=== PATIENT | male | born 1950 | race Caucasian/White ===

== ENCOUNTER → 2016-11-19 | Outpatient (CLI) | payer MEDICARE ==
[~2016-11-19] MED LIST: APIX5TAB PO; ASPI-496 PO; ASPI-621 PO; ASPI-650 PO; ATOR10TA PO; ATOR40TA PO; ATOR40TA78 PO; CALC-148 PO; CANA100T PO; CANA300T PO; CEPH-368 PO; CYCL-259 PO; FENO160T PO; GLIP-142 PO; HYDR-3144 PO; HYDR-3307 PO; LANS15CA5 PO; LISI5TAB7 PO; METF10002 PO; METO25TA91 PO; MULT1TAB60 PO; NAPR220C2 PO; NAPR220T29 PO; OMNIPAQUE 350 MG/ML, 150 ML BOTTLE ONE; PRAS10TA4 PO; SITA25TA PO
== END | disposition home or self-care (01) ==
LOC: CFH 08:55
PROVIDERS: ATTEND Internal Medicine Cardiovascular Disease
DX: I47.1 Supraventricular tachycardia (principal); I48.91 Unspecified atrial fibrillation
CPT/HCPCS: 71020; 75572; Q9967

== ENCOUNTER 2016-11-21 06:32 | Inpatient (IN) | payer MEDICARE ==
[2016-11-19 10:32] VITALS: BP 141/84
[2016-11-19 11:44] LABS: ASPARTATE AMINO TRANSFERASE 22 U/L (15-37); BLOOD UREA NITROGEN 24 mg/dL (7-18)
[~2016-11-21] VITALS: Ht 177.8 cm; Wt 90.8 kg
[~2016-11-21 06:32] MED LIST changes: -OMNIPAQUE 350 MG/ML, 150 ML BOTTLE ONE
[2016-11-21] MEDS ORDERED: SODIUM CHLORIDE 0.9% 1,000 ML IV SCH (06:52)
[2016-11-21] MEDS ORDERED: SODIUM CHLORIDE 0.9% 1,000 ML IV ONE (07:00)
[2016-11-21] MEDS ORDERED: NAPR-874 PO (07:16)
[2016-11-21] MEDS ORDERED: OMEP-110 PO (07:16)
[2016-11-21] MEDS ORDERED: FENTANYL PF 250 MCG/5ML ONE (07:38)
[2016-11-21] MEDS ORDERED: MIDAZOLAM 1 MG/ML, 5ML ONE (07:38)
[2016-11-21] MEDS ORDERED: BUPIVACAINE 0.25% ONE (07:49)
[2016-11-21] MEDS ORDERED: HEPARIN 1,000 UNITS/ML, 10ML ONE ×2 (07:49→10:23)
[2016-11-21] MEDS ORDERED: PROPOFOL 10 MG/ML, 20ML ONE (07:55)
[2016-11-21] MEDS ORDERED: ONDANSETRON 2MG/ML, 2ML ONE (07:55)
[2016-11-21] MEDS ORDERED: SUCCINYLCHOLINE 20 MG/ML, 10ML ONE (07:55)
[2016-11-21] MEDS ORDERED: DEXAMETHASONE 4 MG/ML, 1ML ONE (07:55)
[2016-11-21] MEDS ORDERED: ISOPROTERENOL 0.2MG/ML, 5ML ONE (10:39)
[2016-11-21] MEDS ORDERED: PROTAMINE SULFATE 10 MG/ML, 5ML ONE (11:00)
[2016-11-21] MEDS ORDERED: ACETAMINOPHEN 325 MG TABLET PO PRN ×2 (11:30→12:00)
[2016-11-21] MEDS ORDERED: OXYcodone 5 MG/5 ML ORAL.SOL UDC PO PRN (12:00)
[2016-11-21] MEDS ORDERED: MIDAZOLAM 1 MG/ML, 2ML IV PRN (12:00)
[2016-11-21] MEDS: NAPROXEN MC SCH ×2 (12:00→20:00)
[2016-11-21] MEDS ORDERED: ONDANSETRON 2MG/ML, 2ML IVPush PRN (12:00)
[2016-11-21] MEDS ORDERED: EPHEDRINE 50 MG/ML, 1ML IVPush PRN (12:00)
[2016-11-21] MEDS ORDERED: FENTANYL PF 100 MCG/2ML IV PRN (12:00)
[2016-11-21] MEDS ORDERED: HYDROmorphone 1 MG/ML, 1ML IV PRN (12:00)
[2016-11-21] MEDS ORDERED: PROMETHAZINE 25 MG/ML, 1ML IV PRN (12:00)
[2016-11-21] MEDS: APIXABAN 5 MG TABLET PO SCH (12:41)
[2016-11-21 17:56] VITALS: BP 104/67
[2016-11-21 20:03] VITALS: BP 103/65
[2016-11-21 20:10] VITALS: BP 101/61
[2016-11-21] MEDS ORDERED: ZOLPIDEM 5MG TABLET PO PRN (21:00)
[2016-11-21] MEDS: LISINOPRIL 5 MG TABLET PO SCH (23:30)
[2016-11-21] MEDS: ATORVASTATIN 40 MG TABLET PO SCH (23:31)
[2016-11-21] MEDS: SOTALOL 120MG TABLET PO SCH (23:31)
[2016-11-21] MEDS: metFORMIN 500 MG TABLET PO SCH (23:31)
[2016-11-22 03:00] VITALS: BP 95/59
[2016-11-22 07:38] VITALS: BP 102/66
[2016-11-22] MEDS: FENOFIBRATE 145 MG TABLET PO SCH (09:40)
[2016-11-22] MEDS: SOTALOL 120MG TABLET PO SCH ×2 (09:41→18:41)
[2016-11-22] MEDS: APIXABAN 5 MG TABLET PO SCH ×2 (09:41→20:24)
[2016-11-22] MEDS: NAPROXEN 500 MG TABLET PO SCH (09:41)
[2016-11-22] MEDS: metFORMIN 500 MG TABLET PO SCH ×2 (09:41→18:41)
[2016-11-22] MEDS: MULTIVITAMIN 1 TABLET PO SCH (09:41)
[2016-11-22] MEDS: OMEPRAZOLE 20 MG CAPSULE.DR PO SCH (09:41)
[2016-11-22] MEDS: LISINOPRIL 5 MG TABLET PO SCH ×2 (09:46→20:25)
[2016-11-22 13:41] VITALS: BP 108/72
[2016-11-22 20:07] VITALS: BP 95/60
[2016-11-22] MEDS: GLIPizide ER 5 MG TABLET PO SCH (20:25)
[2016-11-22] MEDS: ATORVASTATIN 40 MG TABLET PO SCH (20:25)
[2016-11-23 02:30] VITALS: BP 105/69
[2016-11-23] MEDS: SOTALOL 120MG TABLET PO SCH ×2 (06:17→17:29)
[2016-11-23 07:04] VITALS: BP 111/72
[2016-11-23] MEDS: NAPROXEN 500 MG TABLET PO SCH (07:56)
[2016-11-23] MEDS: MULTIVITAMIN 1 TABLET PO SCH (07:57)
[2016-11-23] MEDS: APIXABAN 5 MG TABLET PO SCH ×2 (07:57→21:06)
[2016-11-23] MEDS: OMEPRAZOLE 20 MG CAPSULE.DR PO SCH (07:57)
[2016-11-23] MEDS: metFORMIN 500 MG TABLET PO SCH ×2 (07:57→17:28)
[2016-11-23] MEDS: FENOFIBRATE 145 MG TABLET PO SCH (07:57)
[2016-11-23] MEDS: GLIPizide ER 5 MG TABLET PO SCH (07:57)
[2016-11-23] MEDS: LISINOPRIL 5 MG TABLET PO SCH ×2 (07:58→21:00)
[2016-11-23 14:25] VITALS: BP 110/65
[2016-11-23 21:02] VITALS: BP 112/65
[2016-11-23] MEDS: ATORVASTATIN 40 MG TABLET PO SCH (21:06)
[2016-11-24 02:00] VITALS: BP 119/75
[2016-11-24 05:27] LABS: BLOOD UREA NITROGEN 19 mg/dL (7-18)
[2016-11-24] MEDS: SOTALOL 120MG TABLET PO SCH (06:07)
[2016-11-24 08:14] VITALS: BP 143/81
[2016-11-24] MEDS: LISINOPRIL 5 MG TABLET PO SCH (08:16)
[2016-11-24] MEDS: NAPROXEN 500 MG TABLET PO SCH (08:16)
[2016-11-24] MEDS: OMEPRAZOLE 20 MG CAPSULE.DR PO SCH (08:16)
[2016-11-24] MEDS: APIXABAN 5 MG TABLET PO SCH (08:16)
[2016-11-24] MEDS: FENOFIBRATE 145 MG TABLET PO SCH (08:16)
[2016-11-24] MEDS: GLIPizide ER 5 MG TABLET PO SCH (08:16)
[2016-11-24] MEDS: MULTIVITAMIN 1 TABLET PO SCH (08:16)
[2016-11-24] MEDS: metFORMIN 500 MG TABLET PO SCH (08:16)
[2016-11-24] MEDS ORDERED: NAPROXEN 500 MG TABLET PO PRN (08:30)
[2016-11-24] MEDS ORDERED: SOTA120T14 PO (08:33)
== END 2016-11-24 13:35 | disposition home or self-care (01) | DRG 228 ==
LOC: CACL 06:32 → ORIP 11:17 → 5SO 14:14
PROVIDERS: ADMIT Internal Medicine Cardiovascular Disease; ATTEND Internal Medicine Cardiovascular Disease
PROC: 02K84ZZ Map Conduction Mechanism, Percutaneous Endoscopic Approach (ICD-10-PCS; 2016-11-21)
PROC: 4A02X4A Measurement of Cardiac Electrical Activity, Guidance, External Approach (ICD-10-PCS; 2016-11-21)
PROC: 02584ZZ Destruction of Conduction Mechanism, Percutaneous Endoscopic Approach (ICD-10-PCS; principal; 2016-11-21 08:00)
DX: I48.0 Paroxysmal atrial fibrillation (principal); I50.33 Acute on chronic diastolic (congestive) heart failure; D68.69 Other thrombophilia; I48.4 Atypical atrial flutter; D64.9 Anemia, unspecified; I27.2 Other secondary pulmonary hypertension; E11.9 Type 2 diabetes mellitus without complications; E78.5 Hyperlipidemia, unspecified; Z87.891 Personal history of nicotine dependence; I47.1 Supraventricular tachycardia; I95.9 Hypotension, unspecified; R00.1 Bradycardia, unspecified; R51 Headache
CPT/HCPCS: 36415; 80048; 80053; 85025; 85347; 85610; 85730; 93005; 93306; 93312; 93321; 93325; 93613; 93623; 93656; 93662; C1731; C1732; C1766; C1893; C1894; J1100; J1644; J2250; J2405; J2704; J2720; J3010; J3490; C1730; C1759; J0330

== ENCOUNTER 2017-04-17 10:46 | Day surgery (SDC) | payer MEDICARE ==
[~2017-04-17 10:46] MED LIST changes: -HYDR-3144 PO; +HYDR-3245 PO; +NAPR-816 PO; -NAPR220T29 PO; +NAPR250T6 PO; +OMEP-110 PO; +SOTA120T14 PO
== END 2017-04-17 11:45 ==
LOC: CACL 10:46
PROVIDERS: ATTEND Internal Medicine Cardiovascular Disease
DX: I48.92 Unspecified atrial flutter (principal)
CPT/HCPCS: 92960

== ENCOUNTER 2017-04-23 10:37 | Day surgery (SDC) | payer MEDICARE ==
[~2017-04-23] VITALS: Ht 177.8 cm; Wt 88.6 kg
[2017-04-23] MEDS ORDERED: SODIUM CHLORIDE 0.9% 1,000 ML IV ONE (11:00)
[2017-04-23] MEDS ORDERED: PLEASE ENTER HEIGHT AND WEIGHT MC SCH (11:30)
[2017-04-23] MEDS ORDERED: PROPOFOL 10 MG/ML, 20ML ONE (12:23)
== END 2017-04-23 14:02 ==
LOC: CACL 10:37
PROVIDERS: ATTEND Internal Medicine Cardiovascular Disease
DX: I48.92 Unspecified atrial flutter (principal); I25.10 Atherosclerotic heart disease of native coronary artery without angina pectoris; I10 Essential (primary) hypertension; E78.4 Other hyperlipidemia; I34.0 Nonrheumatic mitral (valve) insufficiency; E11.9 Type 2 diabetes mellitus without complications; Z95.5 Presence of coronary angioplasty implant and graft
CPT/HCPCS: 92960; 93312; 93321; 93325; J2704

== ENCOUNTER → 2017-06-03 | Outpatient (CLI) | payer MEDICARE ==
[~2017-06-03] MED LIST changes: +AMLO2.5T PO; +OMNIPAQUE 350 MG/ML, 150 ML BOTTLE ONE; +SOTA120T26 PO
== END | disposition home or self-care (01) ==
LOC: CFH 12:39
PROVIDERS: ATTEND Internal Medicine Cardiovascular Disease
DX: I47.1 Supraventricular tachycardia (principal); I48.91 Unspecified atrial fibrillation
CPT/HCPCS: 71046; 75572; 82565; Q9967

== ENCOUNTER 2017-06-04 06:24 | Observation (INO) | payer MEDICARE ==
[2017-06-03 14:20] VITALS: BP 145/105
[2017-06-03 14:22] LABS: BASOPHILS # (AUTO) 0.02 x10^3/uL (0-0.1); BASOPHILS % (AUTO) 0 % (0-1); EOSINOPHILS # (AUTO) 0.09 x10^3/uL (0-0.4); EOSINOPHILS % (AUTO) 1 % (1-7); LYMPHOCYTES # (AUTO) 1.61 x10^3/uL (1-3.4); LYMPHOCYTES % (AUTO) 22 % (22-44); MD NO; MEAN CORPUSCULAR HEMOGLOBIN 31.1 pg (27.5-34.5); MEAN CORPUSCULAR HGB CONC 33.8 g/dL (33.2-36.2); MEAN CORPUSCULAR VOLUME 92.1 fL (81-97); MEAN PLATELET VOLUME 8.7 fL (7.4-10.4); MONOCYTES # (AUTO) 0.68 x10^3/uL (0.2-0.8); MONOCYTES % (AUTO) 9 % (2-9); NEUTROPHILS % (AUTO) 67 % (42-75); PLATELET COUNT 213 x10^3/uL (130-400); RED BLOOD COUNT 4.99 x10^6/uL (4.38-5.82); RED CELL DISTRIBUTION WIDTH 13.3 % (9.4-14.8)
[2017-06-03 14:35] LABS: ANION GAP 9 mmol/L (5-15); CALCIUM 8.8 mg/dL (8.5-10.1); CHLORIDE 106 mmol/L (98-107); CREATININE 1.08 mg/dL (0.7-1.3)
[2017-06-03 14:51] LABS: INTERNATIONAL NORMALIZED RATIO 1.16 (0.93-1.1)
[~2017-06-04] VITALS: Ht 177.8 cm; Wt 94.2 kg
[~2017-06-04 06:24] MED LIST changes: -AMLO2.5T PO; -OMNIPAQUE 350 MG/ML, 150 ML BOTTLE ONE
[2017-06-04] MEDS ORDERED: SODIUM CHLORIDE 0.9% 1,000 ML IV SCH ×2 (06:37→07:00)
[2017-06-04] MEDS ORDERED: AMLO2.5T PO (07:03)
[2017-06-04] MEDS ORDERED: MIDAZOLAM 1 MG/ML, 2ML ONE (07:29)
[2017-06-04] MEDS ORDERED: FENTANYL PF 250 MCG/5ML ONE (07:29)
[2017-06-04] MEDS ORDERED: ISOPROTERENOL 0.2MG/ML, 5ML ONE (07:51)
[2017-06-04] MEDS ORDERED: PROTAMINE SULFATE 10 MG/ML, 5ML ONE (07:52)
[2017-06-04] MEDS ORDERED: LIDOCAINE 2%, 20ML ONE (07:52)
[2017-06-04] MEDS ORDERED: HEPARIN 1,000 UNITS/ML, 10ML ONE ×2 (07:52→11:07)
[2017-06-04] MEDS ORDERED: PROPOFOL 10 MG/ML, 20ML ONE (08:15)
[2017-06-04] MEDS ORDERED: SUCCINYLCHOLINE 20 MG/ML, 10ML ONE (08:15)
[2017-06-04] MEDS ORDERED: DEXAMETHASONE 4 MG/ML, 1ML ONE (08:15)
[2017-06-04] MEDS ORDERED: ONDANSETRON 2MG/ML, 2ML ONE (08:15)
[2017-06-04] MEDS ORDERED: ACETAMINOPHEN 325 MG TABLET PO PRN ×2 (12:00→12:30)
[2017-06-04] MEDS ORDERED: ZOLPIDEM 5MG TABLET PO PRN (12:00)
[2017-06-04] MEDS ORDERED: OXYcodone 5 MG/5 ML ORAL.SOL UDC PO PRN (12:30)
[2017-06-04] MEDS: APIXABAN 5 MG TABLET PO SCH ×2 (12:30→20:08)
[2017-06-04] MEDS ORDERED: PROMETHAZINE 25 MG/ML, 1ML IV PRN (12:30)
[2017-06-04] MEDS ORDERED: DIAZEPAM 5 MG/ML, 2ML IVPush PRN (12:30)
[2017-06-04] MEDS ORDERED: LABETALOL 5MG/ML, 20ML IV PRN (12:30)
[2017-06-04] MEDS ORDERED: FENTANYL PF 100 MCG/2ML IV PRN (12:30)
[2017-06-04] MEDS ORDERED: LORazepam 2 MG/ML, 1ML IVPush PRN (12:30)
[2017-06-04] MEDS ORDERED: EPHEDRINE 50 MG/ML, 1ML IVPush PRN (12:30)
[2017-06-04] MEDS ORDERED: HYDROmorphone 1 MG/ML, 1ML IV PRN (12:30)
[2017-06-04] MEDS ORDERED: MIDAZOLAM 1 MG/ML, 2ML IV PRN (12:30)
[2017-06-04] MEDS ORDERED: ONDANSETRON 2MG/ML, 2ML IVPush PRN (12:30)
[2017-06-04 18:40] VITALS: BP 110/66
[2017-06-04] MEDS: SOTALOL 120MG TABLET PO SCH (20:07)
[2017-06-04 20:08] VITALS: BP 114/72
[2017-06-04] MEDS: metFORMIN 500 MG TABLET PO SCH (20:08)
[2017-06-04] MEDS: LISINOPRIL 5 MG TABLET PO SCH (20:08)
[2017-06-04] MEDS ORDERED: ATORVASTATIN 40 MG TABLET PO SCH (21:00)
[2017-06-05 01:07] VITALS: BP 103/64
[2017-06-05 06:56] VITALS: BP 107/67
[2017-06-05] MEDS: APIXABAN 5 MG TABLET PO SCH (08:07)
[2017-06-05] MEDS: metFORMIN 500 MG TABLET PO SCH (08:08)
[2017-06-05] MEDS: SOTALOL 120MG TABLET PO SCH (08:08)
[2017-06-05] MEDS: LISINOPRIL 5 MG TABLET PO SCH (08:08)
[2017-06-05] MEDS ORDERED: NAPROXEN 500 MG TABLET PO SCH (09:00)
[2017-06-05] MEDS ORDERED: GLIPizide ER 5 MG TABLET PO SCH (09:00)
[2017-06-05] MEDS ORDERED: OMEPRAZOLE 20 MG CAPSULE.DR PO SCH (09:00)
[2017-06-05] MEDS ORDERED: FENOFIBRATE 145 MG TABLET PO SCH (09:00)
[2017-06-05] MEDS ORDERED: AMLODIPINE 2.5 MG TABLET PO SCH (09:00)
[2017-06-05] MEDS ORDERED: TEMPLATE NON-FORMULARY MED. (Canagliflozin (Invokana) 300 MG) HOMEMEDPO SCH (09:00)
== END 2017-06-05 11:25 | disposition home or self-care (01) ==
LOC: CACL 06:24 → ORIP 11:42 → 5SO 13:20 → DCLOUNGE 06-05 11:20
PROVIDERS: ADMIT Internal Medicine Cardiovascular Disease; ATTEND Internal Medicine Cardiovascular Disease
DX: I48.4 Atypical atrial flutter (principal); I48.91 Unspecified atrial fibrillation; I10 Essential (primary) hypertension; Z98.61 Coronary angioplasty status
CPT/HCPCS: 36415; 80048; 85025; 85347; 85610; 85730; 93306; 93312; 93321; 93325; 93462; 93613; 93621; 93653; 93655; 93662; C1730; C1731; C1759; C1766; C1893; C1894; C2630; G0378; J0330; J1100; J1644; J2250; J2405; J2704; J2720; J3010; J3490; 93656

== ENCOUNTER → 2017-07-03 | Outpatient (CLI) | payer MEDICARE ==
[~2017-07-03] MED LIST changes: +AMLO2.5T PO; +EMPA10TA PO
[2017-07-03 11:09] LABS: BASOPHILS # (AUTO) 0.02 x10^3/uL (0-0.1); BASOPHILS % (AUTO) 0 % (0-1); EOSINOPHILS # (AUTO) 0.16 x10^3/uL (0-0.4); EOSINOPHILS % (AUTO) 2 % (1-7); LYMPHOCYTES # (AUTO) 1.98 x10^3/uL (1-3.4); LYMPHOCYTES % (AUTO) 30 % (22-44); MD NO; MEAN CORPUSCULAR HEMOGLOBIN 30.8 pg (27.5-34.5); MEAN CORPUSCULAR HGB CONC 33.8 g/dL (33.2-36.2); MEAN CORPUSCULAR VOLUME 91.3 fL (81-97); MEAN PLATELET VOLUME 8.9 fL (7.4-10.4); MONOCYTES # (AUTO) 0.72 x10^3/uL (0.2-0.8); MONOCYTES % (AUTO) 11 % (2-9); NEUTROPHILS # (AUTO) 3.68 x10^3/uL (1.8-6.8); NEUTROPHILS % (AUTO) 56 % (42-75); PLATELET COUNT 192 x10^3/uL (130-400); RED BLOOD COUNT 5.06 x10^6/uL (4.38-5.82); RED CELL DISTRIBUTION WIDTH 13.5 % (9.4-14.8)
[2017-07-03 11:21] LABS: ANION GAP 8 mmol/L (5-15); CALCIUM 8.9 mg/dL (8.5-10.1); CHLORIDE 109 mmol/L (98-107)
== END | disposition home or self-care (01) ==
LOC: STAR 10:03
PROVIDERS: ATTEND Internal Medicine Cardiovascular Disease
DX: I10 Essential (primary) hypertension (principal); I48.91 Unspecified atrial fibrillation; Z98.61 Coronary angioplasty status
CPT/HCPCS: 36415; 80048; 85025

== ENCOUNTER 2017-07-08 08:32 | Day surgery (SDC) | payer MEDICAID, MEDICARE ==
[2017-07-03 10:59] VITALS: BP 140/84
[~2017-07-08] VITALS: Ht 177.8 cm; Wt 90.9 kg
[~2017-07-08 08:32] MED LIST changes: -EMPA10TA PO
[2017-07-08] MEDS ORDERED: SODIUM CHLORIDE 0.9% 1,000 ML IV SCH (08:37)
[2017-07-08] MEDS ORDERED: EMPA10TA PO (09:03)
[2017-07-08] MEDS ORDERED: LIDOCAINE 2%, 20ML ONE (09:29)
[2017-07-08] MEDS ORDERED: MIDAZOLAM 1 MG/ML, 2ML ONE (09:29)
[2017-07-08] MEDS ORDERED: FENTANYL PF 100 MCG/2ML ONE (09:29)
== END 2017-07-08 14:08 ==
LOC: CACL 08:32
PROVIDERS: ATTEND Internal Medicine Cardiovascular Disease
DX: I25.10 Atherosclerotic heart disease of native coronary artery without angina pectoris (principal); I48.91 Unspecified atrial fibrillation; Z98.61 Coronary angioplasty status; I10 Essential (primary) hypertension
CPT/HCPCS: 93458; 99156; C1760; C1894; J2250; J3010; J3490; Q9967

== ENCOUNTER 2017-09-01 04:21 | Inpatient (IN) | payer MEDICARE ==
[2017-08-31 13:46] LABS: BASOPHILS # (AUTO) 0.03 x10^3/uL (0-0.1); BASOPHILS % (AUTO) 0 % (0-1); EOSINOPHILS % (AUTO) 3 % (1-7); LYMPHOCYTES # (AUTO) 1.84 x10^3/uL (1-3.4); LYMPHOCYTES % (AUTO) 24 % (22-44); MD NO; MEAN CORPUSCULAR VOLUME 91.1 fL (81-97); MEAN PLATELET VOLUME 8.4 fL (7.4-10.4); MONOCYTES # (AUTO) 0.77 x10^3/uL (0.2-0.8); MONOCYTES % (AUTO) 10 % (2-9); NEUTROPHILS # (AUTO) 4.95 x10^3/uL (1.8-6.8); NEUTROPHILS % (AUTO) 64 % (42-75); PLATELET COUNT 224 x10^3/uL (130-400); RED BLOOD COUNT 5.15 x10^6/uL (4.38-5.82)
[2017-08-31 13:48] LABS: MICROSCOPIC NOT IND
[2017-08-31 13:52] LABS: INTERNATIONAL NORMALIZED RATIO 1.03 (0.93-1.1); PROTHROMBIN TIME 10.6 Seconds (9.6-11.5)
[2017-08-31 13:55] LABS: ALANINE AMINOTRANSFERASE 28 U/L (12-78); ALBUMIN 3.9 g/dL (3.4-5.0); ANION GAP 8 mmol/L (5-15); CALCIUM 8.8 mg/dL (8.5-10.1); CHLORIDE 104 mmol/L (98-107); CREATININE 1.18 mg/dL (0.7-1.3)
[2017-08-31 13:57] LABS: ALKALINE PHOSPHATASE 59 U/L (45-117); BILIRUBIN,TOTAL 0.6 mg/dL (0.2-1.0); TOTAL PROTEIN 7.4 g/dL (6.4-8.2)
[2017-08-31 14:04] LABS: HEMOGLOBIN A1C 8.5 % (4.2-6.3)
[2017-09-01] VITALS (7 sets, daily range): BP systolic 121–137; BP diastolic 76–87
[~2017-09-01] VITALS: Ht 177.8 cm; Wt 90.6 kg
[~2017-09-01 04:21] MED LIST changes: +EMPA10TA PO
[2017-09-01] MEDS ORDERED: ALBUMIN HUMAN 5% 500 ML IV PRN (04:30)
[2017-09-01] MEDS ORDERED: INSULIN LISPRO 100 UNITS/ML, PEN SQ-INSULIN SCH ×2 (05:00→11:00)
[2017-09-01] MEDS ORDERED: CHLORHEXIDINE 15 ML BOTTLE MM SCH (05:00)
[2017-09-01] MEDS ORDERED: DO NOT GIVE MC SCH (05:00)
[2017-09-01] MEDS ORDERED: SUFentanil 50 MCG/ML, 5ML ONE (06:48)
[2017-09-01] MEDS ORDERED: MIDAZOLAM 10MG/2 ML ONE (06:48)
[2017-09-01] MEDS ORDERED: VANCOMYCIN 1,400 MG in SODIUM CHLORIDE 0.9% 250 ML IV PRN (07:30)
[2017-09-01] MEDS ORDERED: POTASSIUM CHLORIDE 80 MEQ, SODIUM BICARBONATE 8.4% 10 MEQ, MAGNESIUM SULFATE 0.5 GM, LI... IV PRN (07:30)
[2017-09-01] MEDS ORDERED: PHENYLEPHRINE 10 MG in SODIUM CHLORIDE 0.9% 249 ML IV PRN ×2 (07:30→09:10)
[2017-09-01] MEDS ORDERED: DEXMEDETOMIDINE 200 MCG in SODIUM CHLORIDE 0.9% 48 ML IV SCH (07:30)
[2017-09-01] MEDS ORDERED: REGULAR INSULIN 62.5 UNITS in SODIUM CHLORIDE 0.9% 249.375 ML IV PRN ×2 (07:30→09:10)
[2017-09-01] MEDS ORDERED: MANNITOL PMX 20% 500 ML IVPB PRN (07:30)
[2017-09-01] MEDS ORDERED: EPINEPHRINE 2 MG in SODIUM CHLORIDE 0.9% 248 ML IV SCH (07:30)
[2017-09-01] MEDS ORDERED: EPINEPHRINE 1 MG/ML, 1ML ONE (08:31)
[2017-09-01] MEDS ORDERED: PHENYLEPHRINE 10 MG/ML ONE (08:31)
[2017-09-01] MEDS ORDERED: PROPOFOL 10 MG/ML, 20ML ONE (08:31)
[2017-09-01] MEDS ORDERED: ROCURONIUM 10MG/ML,5ML ONE ×2 (08:31)
[2017-09-01] MEDS ORDERED: AMINOCAPROIC ACID 250 MG/ML, 20ML ONE ×2 (08:31)
[2017-09-01] MEDS ORDERED: PROTAMINE SULFATE 10 MG/ML, 25ML ONE ×2 (08:48)
[2017-09-01] MEDS ORDERED: MUPIROCIN OINT 2%, 22GM TP SCH (09:00)
[2017-09-01] MEDS ORDERED: VASOPRESSIN 50 UNIT in SODIUM CHLORIDE 0.9% 250 ML IV PRN (09:10)
[2017-09-01] MEDS ORDERED: SODIUM CHLORIDE 0.9% 1,000 ML IV PRN (09:10)
[2017-09-01] MEDS ORDERED: NITROGLYCERIN/D5W PMX 250 ML IV PRN (09:10)
[2017-09-01] MEDS ORDERED: DEXMEDETOMIDINE 200 MCG in SODIUM CHLORIDE 0.9% 48 ML IV PRN (09:10)
[2017-09-01] MEDS ORDERED: DOBUTAMINE 250 MG in SODIUM CHLORIDE 0.9% 230 ML IV PRN (09:10)
[2017-09-01] MEDS ORDERED: DEXTROSE 4 GM TAB.CHEW PO PRN (09:30)
[2017-09-01] MEDS ORDERED: ONDANSETRON 2MG/ML, 2ML IVPush PRN (09:30)
[2017-09-01] MEDS ORDERED: morphine SULFATE 10 MG/ML, 1ML IVPush PRN (09:30)
[2017-09-01] MEDS ORDERED: ACETAMINOPHEN 650 MG SUPP PR PRN (09:30)
[2017-09-01] MEDS ORDERED: EPINEPHRINE 2 MG in SODIUM CHLORIDE 0.9% 248 ML IV PRN (09:30)
[2017-09-01] MEDS ORDERED: GLUCAGON 1 MG IM PRN (09:30)
[2017-09-01] MEDS ORDERED: PLEASE ENTER HEIGHT AND WEIGHT MC SCH (09:30)
[2017-09-01] MEDS ORDERED: PROCHLORPERAZINE 5 MG/ML, 2ML IVPush PRN (09:30)
[2017-09-01] MEDS ORDERED: INSULIN REGULAR 100 UNITS/ML, 3ML VIAL IVPush PRN (09:30)
[2017-09-01] MEDS ORDERED: SODIUM BICARB 8.4%, 50ML SYRINGE IV PRN (09:30)
[2017-09-01] MEDS ORDERED: MIDAZOLAM 1 MG/ML, 5ML IVPush PRN (09:30)
[2017-09-01] MEDS ORDERED: DEXTROSE 50%, 50ML SYRINGE IVPush PRN (09:30)
[2017-09-01] MEDS ORDERED: BISACODYL 5 MG EC TABLET PO PRN (09:30)
[2017-09-01] MEDS ORDERED: BISACODYL 10 MG SUPP PR PRN (09:30)
[2017-09-01] MEDS ORDERED: ACETAMINOPHEN 325 MG TABLET PO PRN (09:30)
[2017-09-01] MEDS ORDERED: AMIODARONE 50 MG/ML, 3ML ONE (09:38)
[2017-09-01] MEDS: KSCALE TO 4.5 IV SCH ×3 (10:30→22:30)
[2017-09-01] MEDS ORDERED: SODIUM BICARBONATE 1 MEQ/ML, 50ML VIAL ONE (10:34)
[2017-09-01] MEDS ORDERED: SODIUM BICARB 8.4%, 50ML SYRINGE ONE (10:34)
[2017-09-01] MEDS ORDERED: ALBUMIN HUMAN 25% 50 ML ONE (10:35)
[2017-09-01] MEDS ORDERED: LIDOCAINE 2% 100MG/5ML SYRINGE ONE (10:35)
[2017-09-01] MEDS ORDERED: HEPARIN 1,000 UNITS/ML, 30ML ONE (10:35)
[2017-09-01] MEDS ORDERED: methylPREDNISolone SOD SUCC 125 MG/2 ML ONE (10:35)
[2017-09-01 11:04] LABS: GLUCOSE BY BLOOD GAS ANALYZER 152 mg/dL (70-110); POTASSIUM BY BLOOD GAS ANALYZR 4.3 mmol/L (3.6-5.5)
[2017-09-01 11:14] LABS: INTERNATIONAL NORMALIZED RATIO 1.22 (0.93-1.1); PROTHROMBIN TIME 12.5 Seconds (9.6-11.5)
[2017-09-01] MEDS: LACTATED RINGERS 1,000 ML IV PRN ×4 (11:14→18:58)
[2017-09-01] MEDS: MAGNESIUM SULFATE 1 GM in SODIUM CHLORIDE 0.9% 50 ML IVPB SCH (11:25)
[2017-09-01] MEDS: SODIUM CHLORIDE FLUSH 10ML SYR IVF SCH ×3 (11:26→20:02)
[2017-09-01] MEDS: FENTANYL PF 100 MCG/2ML IVPush PRN ×2 (12:48→13:46)
[2017-09-01] MEDS ORDERED: LACTATED RINGERS 1,000 ML IVBOLUS ONE (14:30)
[2017-09-01] MEDS ORDERED: INSULIN LISPRO 100 UNITS/ML, PEN SQ-INSULIN PRN (14:30)
[2017-09-01] MEDS ORDERED: ONDANSETRON ODT 4 MG PO PRN (16:30)
[2017-09-01] MEDS: HYDROcodone/APAP 10/325 MG TABLET PO PRN ×2 (18:20→23:03)
[2017-09-01] MEDS ORDERED: CEFUROXIME 1.5 GM in SODIUM CHLORIDE 0.9% 100 ML IVPB SCH (19:00)
[2017-09-01] MEDS: DOCUSATE 100 MG CAPSULE PO SCH (20:01)
[2017-09-01] MEDS: MUPIROCIN OINT 2%, 22GM NAS SCH (20:27)
[2017-09-01] MEDS: VANCOMYCIN 1,300 MG in SODIUM CHLORIDE 0.9% 250 ML IVPB SCH (20:27)
[2017-09-01] MEDS: OXYcodone IR 5MG TABLET PO PRN (20:34)
[2017-09-02] MEDS: INSULIN LISPRO 100 UNITS/ML, PEN SQ-INSULIN PRN ×2 (01:12→08:32)
[2017-09-02] MEDS: HYDROcodone/APAP 10/325 MG TABLET PO PRN ×4 (04:11→21:03)
[2017-09-02 04:29] VITALS: BP 111/66
[2017-09-02] MEDS: KSCALE TO 4.5 IV SCH (04:30)
[2017-09-02 05:28] LABS: BASOPHILS % (AUTO) 0 % (0-1); EOSINOPHILS % (AUTO) 0 % (1-7); LYMPHOCYTES # (AUTO) 0.85 x10^3/uL (1-3.4); LYMPHOCYTES % (AUTO) 7 % (22-44); MD NO; MEAN CORPUSCULAR HEMOGLOBIN 30.6 pg (27.5-34.5); MEAN CORPUSCULAR HGB CONC 33.4 g/dL (33.2-36.2); MEAN CORPUSCULAR VOLUME 91.7 fL (81-97); MEAN PLATELET VOLUME 8.6 fL (7.4-10.4); MONOCYTES # (AUTO) 1.23 x10^3/uL (0.2-0.8); MONOCYTES % (AUTO) 10 % (2-9); NEUTROPHILS # (AUTO) 10.24 x10^3/uL (1.8-6.8); NEUTROPHILS % (AUTO) 83 % (42-75); PLATELET COUNT 128 x10^3/uL (130-400); RED BLOOD COUNT 3.69 x10^6/uL (4.38-5.82)
[2017-09-02 05:35] LABS: ALBUMIN 2.6 g/dL (3.4-5.0); ANION GAP 10 mmol/L (5-15); CALCIUM 7.2 mg/dL (8.5-10.1); CHLORIDE 111 mmol/L (98-107)
[2017-09-02 05:38] LABS: CREATININE 0.77 mg/dL (0.7-1.3)
[2017-09-02 06:53] LABS: INTERNATIONAL NORMALIZED RATIO 1.19 (0.93-1.1); PROTHROMBIN TIME 12.2 Seconds (9.6-11.5)
[2017-09-02] MEDS ORDERED: CEFUROXIME 1.5 GM in SODIUM CHLORIDE 0.9% 100 ML IVPB PRN (07:30)
[2017-09-02] MEDS: WARFARIN BIOPROSTHETIC VALVE PROTOCOL 2-3 XX SCH (07:58)
[2017-09-02] MEDS ORDERED: CEFUROXIME 1.5 GM in SODIUM CHLORIDE 0.9% 50 ML IVPB SCH (08:00)
[2017-09-02] MEDS: ASPIRIN 81 MG TABLET EC PO SCH (08:14)
[2017-09-02] MEDS: VANCOMYCIN 1,300 MG in SODIUM CHLORIDE 0.9% 250 ML IVPB SCH (08:14)
[2017-09-02] MEDS: MUPIROCIN OINT 2%, 22GM NAS SCH ×2 (08:14→20:59)
[2017-09-02] MEDS: DOCUSATE 100 MG CAPSULE PO SCH ×2 (08:14→20:58)
[2017-09-02] MEDS: SODIUM CHLORIDE FLUSH 10ML SYR IVF SCH ×4 (08:15→20:58)
[2017-09-02] MEDS: CHLORHEXIDINE 15 ML BOTTLE MM SCH ×2 (08:17→20:58)
[2017-09-02] MEDS: MAGNESIUM SULFATE 1 GM in SODIUM CHLORIDE 0.9% 50 ML IVPB SCH (11:11)
[2017-09-02] MEDS: INSULIN LISPRO 100 UNITS/ML, PEN SQ-INSULIN SCH ×3 (12:00→21:02)
[2017-09-02] MEDS ORDERED: WARFARIN 5 MG TABLET PO-COUM ONE (18:00)
[2017-09-02] MEDS: OXYcodone IR 5MG TABLET PO PRN (18:13)
[2017-09-03] MEDS: INSULIN LISPRO 100 UNITS/ML, PEN SQ-INSULIN SCH ×6 (00:29→21:06)
[2017-09-03] MEDS: HYDROcodone/APAP 5/325 TABLET PO PRN ×4 (04:16→21:12)
[2017-09-03 05:00] VITALS: BP 152/84
[2017-09-03 05:06] LABS: MEAN CORPUSCULAR HEMOGLOBIN 31.3 pg (27.5-34.5); MEAN PLATELET VOLUME 8.6 fL (7.4-10.4); PLATELET COUNT 122 x10^3/uL (130-400); RED BLOOD COUNT 3.49 x10^6/uL (4.38-5.82)
[2017-09-03 05:18] LABS: ANION GAP 6 mmol/L (5-15); CALCIUM 7.4 mg/dL (8.5-10.1); CHLORIDE 105 mmol/L (98-107); CREATININE 0.96 mg/dL (0.7-1.3)
[2017-09-03 05:20] LABS: INTERNATIONAL NORMALIZED RATIO 1.11 (0.93-1.1); PROTHROMBIN TIME 11.4 Seconds (9.6-11.5)
[2017-09-03 05:50] LABS: BASOPHILS # (AUTO) 0.03 x10^3/uL (0-0.1); BASOPHILS % (AUTO) 0 % (0-1); EOSINOPHILS # (AUTO) 0.02 x10^3/uL (0-0.4); EOSINOPHILS % (AUTO) 0 % (1-7); LYMPHOCYTES # (AUTO) 1.65 x10^3/uL (1-3.4); LYMPHOCYTES % (AUTO) 13 % (22-44); MONOCYTES # (AUTO) 1.67 x10^3/uL (0.2-0.8); MONOCYTES % (AUTO) 13 % (2-9); NEUTROPHILS # (AUTO) 9.85 x10^3/uL (1.8-6.8); NEUTROPHILS % (AUTO) 75 % (42-75)
[2017-09-03 06:00] LABS: MD SCAN
[2017-09-03] MEDS ORDERED: MAGNESIUM HYDROXIDE 8%, 30ML UDC PO PRN (08:00)
[2017-09-03] MEDS: SODIUM CHLORIDE FLUSH 10ML SYR IVF SCH ×3 (08:10→21:08)
[2017-09-03] MEDS: CHLORHEXIDINE 15 ML BOTTLE MM SCH ×2 (08:58→21:07)
[2017-09-03] MEDS: MUPIROCIN OINT 2%, 22GM NAS SCH ×2 (08:59→21:07)
[2017-09-03] MEDS: SOTALOL 80MG TABLET PO SCH ×2 (08:59→21:07)
[2017-09-03] MEDS: LISINOPRIL 5 MG TABLET PO SCH ×2 (09:00→21:07)
[2017-09-03] MEDS ORDERED: metFORMIN 500 MG TABLET PO SCH (09:00)
[2017-09-03] MEDS: ASPIRIN 81 MG TABLET EC PO SCH (09:00)
[2017-09-03] MEDS: WARFARIN BIOPROSTHETIC VALVE PROTOCOL 2-3 XX SCH (09:00)
[2017-09-03] MEDS: DOCUSATE 100 MG CAPSULE PO SCH ×2 (09:00→21:07)
[2017-09-03] MEDS: OMEPRAZOLE 20 MG CAPSULE.DR PO SCH (09:00)
[2017-09-03] MEDS: MAGNESIUM SULFATE 1 GM in SODIUM CHLORIDE 0.9% 50 ML IVPB SCH (10:57)
[2017-09-03] MEDS: EMPAGLIFLOZIN PO SCH (11:49)
[2017-09-03] MEDS: TEMPLATE NON-FORMULARY MED. (Glipizide** (Glipizide Xl**) 10 MG) PO SCH (11:49)
[2017-09-03] MEDS ORDERED: WARFARIN 5 MG TABLET PO-COUM SCH (18:00)
[2017-09-03 18:18] VITALS: BP 132/84
[2017-09-03] MEDS: ATORVASTATIN 40 MG TABLET PO SCH (21:07)
[2017-09-04 01:30] VITALS: BP 113/76
[2017-09-04] MEDS: SODIUM CHLORIDE FLUSH 10ML SYR IVF SCH ×5 (03:37→21:20)
[2017-09-04 05:44] LABS: BASOPHILS # (AUTO) 0.01 x10^3/uL (0-0.1); BASOPHILS % (AUTO) 0 % (0-1); EOSINOPHILS # (AUTO) 0.06 x10^3/uL (0-0.4); EOSINOPHILS % (AUTO) 1 % (1-7); LYMPHOCYTES # (AUTO) 1.63 x10^3/uL (1-3.4); LYMPHOCYTES % (AUTO) 16 % (22-44); MD NO; MEAN CORPUSCULAR HEMOGLOBIN 30.6 pg (27.5-34.5); MEAN CORPUSCULAR HGB CONC 33.3 g/dL (33.2-36.2); MEAN CORPUSCULAR VOLUME 91.9 fL (81-97); MEAN PLATELET VOLUME 8.5 fL (7.4-10.4); MONOCYTES % (AUTO) 10 % (2-9); NEUTROPHILS # (AUTO) 7.66 x10^3/uL (1.8-6.8); NEUTROPHILS % (AUTO) 74 % (42-75); PLATELET COUNT 121 x10^3/uL (130-400); RED BLOOD COUNT 3.46 x10^6/uL (4.38-5.82); RED CELL DISTRIBUTION WIDTH 13.9 % (9.4-14.8)
[2017-09-04 05:55] LABS: ANION GAP 9 mmol/L (5-15); CALCIUM 7.7 mg/dL (8.5-10.1); CHLORIDE 106 mmol/L (98-107); CREATININE 0.71 mg/dL (0.7-1.3)
[2017-09-04 07:33] VITALS: BP 128/82
[2017-09-04] MEDS: OMEPRAZOLE 20 MG CAPSULE.DR PO SCH (07:58)
[2017-09-04] MEDS: SOTALOL 80MG TABLET PO SCH ×2 (07:58→21:20)
[2017-09-04] MEDS: ASPIRIN 81 MG TABLET EC PO SCH (07:59)
[2017-09-04] MEDS: TEMPLATE NON-FORMULARY MED. (Glipizide** (Glipizide Xl**) 10 MG) PO SCH (07:59)
[2017-09-04] MEDS: WARFARIN BIOPROSTHETIC VALVE PROTOCOL 2-3 XX SCH (07:59)
[2017-09-04] MEDS: EMPAGLIFLOZIN PO SCH (07:59)
[2017-09-04] MEDS: LISINOPRIL 5 MG TABLET PO SCH ×2 (07:59→21:20)
[2017-09-04] MEDS: DOCUSATE 100 MG CAPSULE PO SCH ×2 (07:59→21:20)
[2017-09-04] MEDS: MUPIROCIN OINT 2%, 22GM NAS SCH ×2 (08:00→21:20)
[2017-09-04] MEDS: INSULIN LISPRO 100 UNITS/ML, PEN SQ-INSULIN SCH ×4 (08:00→21:30)
[2017-09-04] MEDS: FUROSEMIDE 20 MG/2 ML IV SCH (08:02)
[2017-09-04] MEDS: POTASSIUM CHLORIDE 10 MEQ TABLET.ER PO SCH (08:02)
[2017-09-04 08:13] LABS: INTERNATIONAL NORMALIZED RATIO 1.1 (0.93-1.1); PROTHROMBIN TIME 11.3 Seconds (9.6-11.5)
[2017-09-04 14:00] VITALS: BP 109/75
[2017-09-04] MEDS: HYDROcodone/APAP 10/325 MG TABLET PO PRN (17:52)
[2017-09-04] MEDS ORDERED: WARFARIN 5 MG TABLET PO-COUM SCH (18:00)
[2017-09-04] MEDS ORDERED: LINA5TAB PO (20:40)
[2017-09-04] MEDS ORDERED: EMPA25TA PO (20:40)
[2017-09-04] MEDS: ATORVASTATIN 40 MG TABLET PO SCH (21:20)
[2017-09-04 21:21] VITALS: BP 113/74
[2017-09-05 01:25] VITALS: BP 127/78
[2017-09-05 05:34] LABS: INTERNATIONAL NORMALIZED RATIO 1.19 (0.93-1.1); PROTHROMBIN TIME 12.2 Seconds (9.6-11.5)
[2017-09-05 05:37] LABS: ANION GAP 9 mmol/L (5-15); CALCIUM 8.1 mg/dL (8.5-10.1); CHLORIDE 103 mmol/L (98-107)
[2017-09-05 05:39] LABS: CREATININE 0.85 mg/dL (0.7-1.3)
[2017-09-05 05:52] LABS: BASOPHILS # (AUTO) 0.03 x10^3/uL (0-0.1); BASOPHILS % (AUTO) 0 % (0-1); EOSINOPHILS # (AUTO) 0.14 x10^3/uL (0-0.4); EOSINOPHILS % (AUTO) 2 % (1-7); LYMPHOCYTES # (AUTO) 1.68 x10^3/uL (1-3.4); LYMPHOCYTES % (AUTO) 19 % (22-44); MD NO; MEAN CORPUSCULAR HEMOGLOBIN 30.8 pg (27.5-34.5); MEAN CORPUSCULAR HGB CONC 33.8 g/dL (33.2-36.2); MEAN CORPUSCULAR VOLUME 91.3 fL (81-97); MEAN PLATELET VOLUME 8.6 fL (7.4-10.4); MONOCYTES # (AUTO) 0.89 x10^3/uL (0.2-0.8); MONOCYTES % (AUTO) 10 % (2-9); NEUTROPHILS # (AUTO) 6.08 x10^3/uL (1.8-6.8); NEUTROPHILS % (AUTO) 69 % (42-75); PLATELET COUNT 150 x10^3/uL (130-400); RED BLOOD COUNT 3.62 x10^6/uL (4.38-5.82); RED CELL DISTRIBUTION WIDTH 13.5 % (9.4-14.8)
[2017-09-05 07:27] VITALS: BP 145/84
[2017-09-05] MEDS: SODIUM CHLORIDE FLUSH 10ML SYR IVF SCH ×4 (08:11→21:00)
[2017-09-05] MEDS: GLIPIZIDE 10 MG HOMEMEDPO SCH ×2 (08:28→20:30)
[2017-09-05] MEDS: EMPAGLIFLOZIN 25 MG HOMEMEDPO SCH (08:28)
[2017-09-05] MEDS: INSULIN LISPRO 100 UNITS/ML, PEN SQ-INSULIN SCH ×4 (08:35→20:32)
[2017-09-05] MEDS: ASPIRIN 81 MG TABLET EC PO SCH (08:36)
[2017-09-05] MEDS: POTASSIUM CHLORIDE 10 MEQ TABLET.ER PO SCH (08:36)
[2017-09-05] MEDS: DOCUSATE 100 MG CAPSULE PO SCH ×2 (08:36→20:29)
[2017-09-05] MEDS: LISINOPRIL 10 MG TABLET PO SCH ×2 (08:37→20:29)
[2017-09-05] MEDS: FUROSEMIDE 20 MG/2 ML IV SCH (08:37)
[2017-09-05] MEDS: OMEPRAZOLE 20 MG CAPSULE.DR PO SCH (08:39)
[2017-09-05] MEDS: WARFARIN BIOPROSTHETIC VALVE PROTOCOL 2-3 XX SCH (08:58)
[2017-09-05] MEDS: MUPIROCIN OINT 2%, 22GM NAS SCH ×2 (08:58→20:29)
[2017-09-05 12:46] VITALS: BP 126/86
[2017-09-05] MEDS ORDERED: WARFARIN 7.5 MG TABLET PO-COUM SCH (18:00)
[2017-09-05 20:23] VITALS: BP 127/83
[2017-09-05] MEDS: ATORVASTATIN 40 MG TABLET PO SCH (20:29)
[2017-09-06 01:37] VITALS: BP 125/84
[2017-09-06 05:10] LABS: BASOPHILS # (AUTO) 0.01 x10^3/uL (0-0.1); BASOPHILS % (AUTO) 0 % (0-1); EOSINOPHILS # (AUTO) 0.12 x10^3/uL (0-0.4); EOSINOPHILS % (AUTO) 1 % (1-7); LYMPHOCYTES # (AUTO) 1.75 x10^3/uL (1-3.4); LYMPHOCYTES % (AUTO) 20 % (22-44); MD NO; MEAN CORPUSCULAR HEMOGLOBIN 30.5 pg (27.5-34.5); MEAN CORPUSCULAR HGB CONC 33.6 g/dL (33.2-36.2); MEAN CORPUSCULAR VOLUME 90.7 fL (81-97); MEAN PLATELET VOLUME 7.9 fL (7.4-10.4); MONOCYTES # (AUTO) 0.79 x10^3/uL (0.2-0.8); MONOCYTES % (AUTO) 9 % (2-9); NEUTROPHILS # (AUTO) 6.06 x10^3/uL (1.8-6.8); NEUTROPHILS % (AUTO) 69 % (42-75); PLATELET COUNT 185 x10^3/uL (130-400); RED CELL DISTRIBUTION WIDTH 14.2 % (9.4-14.8)
[2017-09-06 05:15] LABS: INTERNATIONAL NORMALIZED RATIO 1.49 (0.93-1.1); PROTHROMBIN TIME 15.2 Seconds (9.6-11.5)
[2017-09-06 05:20] LABS: ANION GAP 10 mmol/L (5-15); CALCIUM 7.7 mg/dL (8.5-10.1); CHLORIDE 103 mmol/L (98-107)
[2017-09-06 05:22] LABS: CREATININE 0.67 mg/dL (0.7-1.3)
[2017-09-06] MEDS: HYDROcodone/APAP 5/325 TABLET PO PRN (06:03)
[2017-09-06] MEDS ORDERED: LISI-167 PO (06:13)
[2017-09-06] MEDS ORDERED: FURO20TA3 PO (06:13)
[2017-09-06] MEDS ORDERED: POTA10TA5 PO (06:13)
[2017-09-06] MEDS ORDERED: HYDR-3307 PO ×2 (06:13→08:19)
[2017-09-06] MEDS ORDERED: WARF5TAB PO (06:13)
[2017-09-06] MEDS ORDERED: ASPI-621 PO (06:13)
[2017-09-06] MEDS ORDERED: POTASSIUM CHLORIDE 20 MEQ TAB.ER.PRT PO ONE (06:30)
[2017-09-06 08:22] VITALS: BP 126/81
[2017-09-06] MEDS: INSULIN LISPRO 100 UNITS/ML, PEN SQ-INSULIN SCH (09:29)
[2017-09-06] MEDS: OMEPRAZOLE 20 MG CAPSULE.DR PO SCH (09:29)
[2017-09-06] MEDS: POTASSIUM CHLORIDE 10 MEQ TABLET.ER PO SCH (09:29)
[2017-09-06] MEDS: DOCUSATE 100 MG CAPSULE PO SCH (09:30)
[2017-09-06] MEDS: LISINOPRIL 10 MG TABLET PO SCH (09:30)
[2017-09-06] MEDS: ASPIRIN 81 MG TABLET EC PO SCH (09:30)
[2017-09-06] MEDS: MUPIROCIN OINT 2%, 22GM NAS SCH (09:31)
[2017-09-06] MEDS: WARFARIN BIOPROSTHETIC VALVE PROTOCOL 2-3 XX SCH (09:32)
[2017-09-06] MEDS: SODIUM CHLORIDE FLUSH 10ML SYR IVF SCH ×2 (09:32)
[2017-09-06] MEDS: GLIPIZIDE 10 MG HOMEMEDPO SCH (09:32)
[2017-09-06] MEDS: EMPAGLIFLOZIN 25 MG HOMEMEDPO SCH (09:32)
[2017-09-06] MEDS: FUROSEMIDE 20 MG/2 ML IV SCH (09:35)
[2017-09-06] MEDS ORDERED: WARFARIN 10 MG TABLET PO-COUM SCH (18:00)
== END 2017-09-06 15:53 | disposition home or self-care (01) | DRG 219 ==
LOC: 5SO 04:21 → CSU 07:37 → 5SO 09-03 18:13
PROVIDERS: ADMIT Thoracic Surgery (Cardiothoracic Vascular Surgery); ATTEND Thoracic Surgery (Cardiothoracic Vascular Surgery)
PROC: 04Q00ZZ Repair Abdominal Aorta, Open Approach (ICD-10-PCS; 2017-09-01)
PROC: 02580ZZ Destruction of Conduction Mechanism, Open Approach (ICD-10-PCS; 2017-09-01)
PROC: 5A1221Z Performance of Cardiac Output, Continuous (ICD-10-PCS; 2017-09-01)
PROC: 02L70ZK Occlusion of Left Atrial Appendage, Open Approach (ICD-10-PCS; 2017-09-01)
PROC: 30233R1 Transfusion of Nonautologous Platelets into Peripheral Vein, Percutaneous Approach (ICD-10-PCS; 2017-09-01)
PROC: 02UG08Z Supplement Mitral Valve with Zooplastic Tissue, Open Approach (ICD-10-PCS; principal; 2017-09-01 07:30)
DX: I34.0 Nonrheumatic mitral (valve) insufficiency (principal); J96.00 Acute respiratory failure, unspecified whether with hypoxia or hypercapnia; I48.0 Paroxysmal atrial fibrillation; D68.69 Other thrombophilia; I72.8 Aneurysm of other specified arteries; I48.2 Chronic atrial fibrillation; I34.1 Nonrheumatic mitral (valve) prolapse; I10 Essential (primary) hypertension; E11.9 Type 2 diabetes mellitus without complications; E78.5 Hyperlipidemia, unspecified; I25.10 Atherosclerotic heart disease of native coronary artery without angina pectoris; I44.0 Atrioventricular block, first degree; Z79.01 Long term (current) use of anticoagulants; Z90.81 Acquired absence of spleen; Z95.5 Presence of coronary angioplasty implant and graft
CPT/HCPCS: 36415; 36600; 71045; 71046; 80048; 80053; 81003; 82040; 82330; 82800; 82803; 82810; 82947; 82962; 83036; 83735; 84132; 84295; 85014; 85018; 85025; 85049; 85347; 85610; 85730; 86850; 86900; 86923; 87081; 88305; 93005; 93312; 93321; 93325; 93880; 94002; J0171; J0697; J1644; J1815; J2250; J2704; J2720; J3010; J3370; J3475; J3480; J3490; P9045; P9047; Q0162; C1751; C1760; J0282; J1940; J2370; J2930; J7050; J7120; P9035

== ENCOUNTER → 2017-09-30 | Outpatient (CLI) | payer MEDICARE ==
[~2017-09-30] MED LIST changes: +EMPA25TA PO; +FURO20TA3 PO; +LINA5TAB PO; +LISI-167 PO; +POTA10TA5 PO; +WARF5TAB PO
== END ==
LOC: CFH 09:34
PROVIDERS: ATTEND Nurse Practitioner
DX: M51.26 Other intervertebral disc displacement, lumbar region (principal); M43.16 Spondylolisthesis, lumbar region; M48.061 Spinal stenosis, lumbar region without neurogenic claudication
CPT/HCPCS: 72120; 72148

== ENCOUNTER → 2017-11-30 | Outpatient (CLI) | payer MEDICARE ==
[~2017-11-30] MED LIST changes: +ACET-458 PO; +ACET-76 PO; +GABA600T2 PO; +LISI-170 PO; +METF1000 PO; +SOTA120T7 PO
[2017-11-30 12:17] LABS: MICROSCOPIC NOT IND
[2017-11-30 12:18] LABS: BASOPHILS # (AUTO) 0.03 x10^3/uL (0-0.1); BASOPHILS % (AUTO) 0 % (0-1); EOSINOPHILS # (AUTO) 0.12 x10^3/uL (0-0.4); EOSINOPHILS % (AUTO) 2 % (1-7); LYMPHOCYTES # (AUTO) 2.01 x10^3/uL (1-3.4); LYMPHOCYTES % (AUTO) 25 % (22-44); MD NO; MEAN CORPUSCULAR HEMOGLOBIN 29.5 pg (27.5-34.5); MEAN CORPUSCULAR HGB CONC 32.9 g/dL (33.2-36.2); MEAN CORPUSCULAR VOLUME 89.8 fL (81-97); MEAN PLATELET VOLUME 8.9 fL (7.4-10.4); MONOCYTES # (AUTO) 0.86 x10^3/uL (0.2-0.8); MONOCYTES % (AUTO) 11 % (2-9); NEUTROPHILS # (AUTO) 4.94 x10^3/uL (1.8-6.8); NEUTROPHILS % (AUTO) 62 % (42-75); PLATELET COUNT 330 x10^3/uL (130-400); RED BLOOD COUNT 5.16 x10^6/uL (4.38-5.82)
[2017-11-30 12:26] LABS: CULTURE INDICATED? NO
[2017-11-30 12:28] LABS: INTERNATIONAL NORMALIZED RATIO 1.16 (0.93-1.1)
[2017-11-30 12:30] LABS: ALBUMIN 4.1 g/dL (3.4-5.0); ANION GAP 8 mmol/L (5-15); CALCIUM 9.7 mg/dL (8.5-10.1); CHLORIDE 105 mmol/L (98-107)
[2017-11-30 12:34] LABS: ALANINE AMINOTRANSFERASE 36 U/L (12-78); ALKALINE PHOSPHATASE 51 U/L (45-117); BILIRUBIN,TOTAL 0.6 mg/dL (0.2-1.0); CREATININE 1.23 mg/dL (0.7-1.3); TOTAL PROTEIN 8.2 g/dL (6.4-8.2)
== END | disposition home or self-care (01) ==
LOC: STAR 10:22
PROVIDERS: ATTEND Neurological Surgery
DX: Z01.818 Encounter for other preprocedural examination (principal); M51.36 Other intervertebral disc degeneration, lumbar region
CPT/HCPCS: 36415; 71046; 80053; 81003; 85025; 85610; 85730; 93005

== ENCOUNTER 2017-12-07 07:00 | Inpatient (IN) | payer MEDICARE ==
[2017-12-04 09:56] LABS: INTERNATIONAL NORMALIZED RATIO 1.09 (0.93-1.1); PROTHROMBIN TIME 11.3 Seconds (9.6-11.5)
[~2017-12-07] VITALS: Ht 177.8 cm; Wt 95.9 kg
[2017-12-07] MEDS ORDERED: ACETAMINOPHEN 500 MG TABLET PO ONE (09:00)
[2017-12-07] MEDS ORDERED: ONDANSETRON ODT 8 MG PO ONE (09:00)
[2017-12-07] MEDS ORDERED: OXYcodone IR 5MG TABLET PO ONE (09:00)
[2017-12-07] MEDS ORDERED: GABAPENTIN 300 MG CAPSULE PO ONE (09:00)
[2017-12-07] MEDS ORDERED: BUPIVACAINE/PF-EPI 0.5% 1:200K ONE (09:31)
[2017-12-07] MEDS ORDERED: CEFAZOLIN 1,000 MG ONE ×3 (09:31→10:00)
[2017-12-07] MEDS ORDERED: THROMBIN 5,000 UNIT VIAL TP ONE ×2 (09:32→12:01)
[2017-12-07] MEDS ORDERED: BACITRACIN 50,000 UNIT ONE (09:32)
[2017-12-07] MEDS ORDERED: LACTATED RINGERS 1,000 ML IV SCH (09:41)
[2017-12-07] MEDS ORDERED: PROPOFOL 10 MG/ML, 20ML ONE (10:00)
[2017-12-07] MEDS ORDERED: ROCURONIUM 10MG/ML,5ML ONE (10:00)
[2017-12-07] MEDS ORDERED: PROPOFOL 100 ML ONE (10:01)
[2017-12-07] MEDS ORDERED: FENTANYL PF 250 MCG/5ML ONE (10:03)
[2017-12-07] MEDS ORDERED: MIDAZOLAM 1 MG/ML, 2ML ONE (10:03)
[2017-12-07] MEDS ORDERED: HYDROmorphone 1 MG/ML, 1ML IV PRN (10:30)
[2017-12-07] MEDS ORDERED: DIAZEPAM 5 MG/ML, 2ML IVPush PRN (10:30)
[2017-12-07] MEDS ORDERED: ACETAMINOPHEN 325 MG TABLET PO PRN ×2 (10:30→16:00)
[2017-12-07] MEDS ORDERED: EPHEDRINE 50 MG/ML, 1ML IVPush PRN (10:30)
[2017-12-07] MEDS ORDERED: ONDANSETRON 2MG/ML, 2ML IV PRN (10:30)
[2017-12-07] MEDS ORDERED: hydrALAzine 20 MG/ML, 1ML IV PRN (10:30)
[2017-12-07] MEDS ORDERED: FENTANYL PF 100 MCG/2ML IV PRN (10:30)
[2017-12-07] MEDS ORDERED: OXYcodone 5 MG/5 ML ORAL.SOL UDC PO PRN (10:30)
[2017-12-07] MEDS ORDERED: METOPROLOL 1 MG/ML, 5ML IV PRN (10:30)
[2017-12-07] MEDS ORDERED: ALBUTEROL SULFATE 2.5 MG/3 ML NPPB PRN (10:30)
[2017-12-07] MEDS ORDERED: PROMETHAZINE 25 MG/ML, 1ML IV PRN (10:30)
[2017-12-07] MEDS ORDERED: LABETALOL 5MG/ML, 20ML IV PRN (10:30)
[2017-12-07] MEDS ORDERED: BUPIVACAINE/PF-EPI 0.5% 1:200K INFIL ONE (12:00)
[2017-12-07] MEDS ORDERED: BACITRACIN 50,000 UNIT IRRIG ONE (12:01)
[2017-12-07] MEDS ORDERED: OXYcodone 5 MG/5 ML ORAL.SOL UDC ONE (13:33)
[2017-12-07] MEDS ORDERED: DIPHENHYDRAMINE 50 MG/ML, 1ML IVPush PRN (15:00)
[2017-12-07] MEDS ORDERED: BISACODYL 10 MG SUPP PR PRN (15:00)
[2017-12-07] MEDS ORDERED: HYDROcodone/APAP 10/325 MG TABLET PO PRN (15:00)
[2017-12-07] MEDS ORDERED: CEFAZOLIN PMX 1GM/50ML 50 ML IVPB SCH (15:00)
[2017-12-07] MEDS ORDERED: MAGNESIUM HYDROXIDE 8%, 30ML UDC PO PRN (15:00)
[2017-12-07] MEDS ORDERED: MORPHINE SULFATE 4 MG/ML, 1ML IV PRN (15:30)
[2017-12-07] MEDS ORDERED: morphine SULFATE 10 MG/ML, 1ML IV PRN (15:30)
[2017-12-07] MEDS ORDERED: METHOCARBAMOL 750 MG TABLET PO PRN (15:30)
[2017-12-07] MEDS: OXYcodone IR 5MG TABLET PO PRN ×2 (15:35→19:56)
[2017-12-07] MEDS: metFORMIN 500 MG TABLET PO SCH (16:28)
[2017-12-07] MEDS: INSULIN REGULAR 100 UNITS/ML, 3ML VIAL SQ-INSULIN SCH ×2 (16:28→22:15)
[2017-12-07] MEDS: ONDANSETRON 2MG/ML, 2ML IV PRN ×2 (17:44→21:46)
[2017-12-07] MEDS: CEFAZOLIN PMX 1GM/50ML 50 ML IVPB SCH (18:31)
[2017-12-07] MEDS: FAMOTIDINE 20 MG TABLET PO SCH (19:52)
[2017-12-07] MEDS: DIPHENHYDRAMINE 25 MG CAPSULE PO PRN (20:07)
[2017-12-07 20:10] VITALS: BP 123/72
[2017-12-07] MEDS: LISINOPRIL 20 MG TABLET PO SCH (21:32)
[2017-12-07] MEDS: ATORVASTATIN 40 MG TABLET PO SCH (21:32)
[2017-12-07] MEDS: SOTALOL 120MG TABLET PO SCH (21:33)
[2017-12-07] MEDS: LACTATED RINGERS 1,000 ML IV SCH (21:33)
[2017-12-08 00:09] VITALS: BP 122/71
[2017-12-08] MEDS: CEFAZOLIN PMX 1GM/50ML 50 ML IVPB SCH (02:27)
[2017-12-08 03:15] VITALS: BP 126/75
[2017-12-08 05:09] LABS: BASOPHILS % (AUTO) 0 % (0-1); EOSINOPHILS % (AUTO) 0 % (1-7); LYMPHOCYTES # (AUTO) 1.08 x10^3/uL (1-3.4); LYMPHOCYTES % (AUTO) 9 % (22-44); MD NO; MEAN CORPUSCULAR HEMOGLOBIN 30.1 pg (27.5-34.5); MEAN CORPUSCULAR HGB CONC 33.7 g/dL (33.2-36.2); MEAN CORPUSCULAR VOLUME 89.2 fL (81-97); MEAN PLATELET VOLUME 8.7 fL (7.4-10.4); MONOCYTES # (AUTO) 1.09 x10^3/uL (0.2-0.8); MONOCYTES % (AUTO) 9 % (2-9); NEUTROPHILS % (AUTO) 82 % (42-75); PLATELET COUNT 264 x10^3/uL (130-400); RED BLOOD COUNT 4.06 x10^6/uL (4.38-5.82); RED CELL DISTRIBUTION WIDTH 15.8 % (9.4-14.8)
[2017-12-08 05:17] LABS: ANION GAP 10 mmol/L (5-15); CALCIUM 8.1 mg/dL (8.5-10.1); CHLORIDE 101 mmol/L (98-107); CREATININE 1.12 mg/dL (0.7-1.3); INTERNATIONAL NORMALIZED RATIO 1.11 (0.93-1.1); PROTHROMBIN TIME 11.5 Seconds (9.6-11.5)
[2017-12-08] MEDS: LACTATED RINGERS 1,000 ML IV SCH ×2 (05:30→15:30)
[2017-12-08 07:13] VITALS: BP 125/76
[2017-12-08] MEDS: INSULIN REGULAR 100 UNITS/ML, 3ML VIAL SQ-INSULIN SCH ×4 (07:51→23:06)
[2017-12-08] MEDS: SOTALOL 120MG TABLET PO SCH ×2 (08:21→22:50)
[2017-12-08] MEDS: FUROSEMIDE 20 MG TABLET PO SCH (08:22)
[2017-12-08] MEDS: POTASSIUM CHLORIDE 10 MEQ TABLET.ER PO SCH (08:22)
[2017-12-08] MEDS: SENNA/DOCUSATE TABLET PO SCH (08:22)
[2017-12-08] MEDS: LISINOPRIL 20 MG TABLET PO SCH ×2 (08:22→22:50)
[2017-12-08] MEDS: FAMOTIDINE 20 MG TABLET PO SCH ×2 (08:22→22:50)
[2017-12-08] MEDS: ENOXAPARIN 30 MG/0.3 ML SQ SCH ×2 (08:23→22:49)
[2017-12-08] MEDS: metFORMIN 500 MG TABLET PO SCH ×2 (08:23→16:26)
[2017-12-08] MEDS: SCOPOLAMINE PATCH, 1.5MG PATCH.TD72 TD SCH (09:19)
[2017-12-08] MEDS: METOCLOPRAMIDE 5 MG/ML, 2ML IV SCH ×2 (09:20→16:26)
[2017-12-08] MEDS: OXYcodone IR 5MG TABLET PO PRN ×4 (09:27→22:50)
[2017-12-08 13:15] VITALS: BP 107/64
[2017-12-08 20:06] VITALS: BP 107/59
[2017-12-08] MEDS: ATORVASTATIN 40 MG TABLET PO SCH (21:00)
[2017-12-08] MEDS: FENOFIBRATE 160MG TAB HOMEMEDPO SCH (22:43)
[2017-12-09] MEDS ORDERED: METOCLOPRAMIDE 5 MG/ML, 2ML IV PRN (01:00)
[2017-12-09] MEDS: LACTATED RINGERS 1,000 ML IV SCH ×3 (01:30→21:30)
[2017-12-09 02:46] VITALS: BP 114/69
[2017-12-09 05:02] LABS: BASOPHILS # (AUTO) 0.03 x10^3/uL (0-0.1); BASOPHILS % (AUTO) 0 % (0-1); EOSINOPHILS # (AUTO) 0.01 x10^3/uL (0-0.4); EOSINOPHILS % (AUTO) 0 % (1-7); LYMPHOCYTES # (AUTO) 1.38 x10^3/uL (1-3.4); LYMPHOCYTES % (AUTO) 13 % (22-44); MD NO; MEAN CORPUSCULAR HEMOGLOBIN 30.3 pg (27.5-34.5); MEAN CORPUSCULAR HGB CONC 33.8 g/dL (33.2-36.2); MEAN CORPUSCULAR VOLUME 89.4 fL (81-97); MEAN PLATELET VOLUME 7.9 fL (7.4-10.4); MONOCYTES % (AUTO) 13 % (2-9); NEUTROPHILS % (AUTO) 74 % (42-75); PLATELET COUNT 240 x10^3/uL (130-400); RED BLOOD COUNT 3.78 x10^6/uL (4.38-5.82); RED CELL DISTRIBUTION WIDTH 15.7 % (9.4-14.8)
[2017-12-09 05:13] LABS: ANION GAP 8 mmol/L (5-15); CALCIUM 8.1 mg/dL (8.5-10.1); CHLORIDE 102 mmol/L (98-107)
[2017-12-09 05:14] LABS: CREATININE 1.07 mg/dL (0.7-1.3)
[2017-12-09 05:25] LABS: INTERNATIONAL NORMALIZED RATIO 1.12 (0.93-1.1); PROTHROMBIN TIME 11.6 Seconds (9.6-11.5)
[2017-12-09] MEDS: OXYcodone IR 5MG TABLET PO PRN ×4 (06:55→19:40)
[2017-12-09 07:15] VITALS: BP 142/88
[2017-12-09] MEDS: INSULIN REGULAR 100 UNITS/ML, 3ML VIAL SQ-INSULIN SCH ×4 (07:43→21:29)
[2017-12-09] MEDS: FENOFIBRATE 160MG TAB HOMEMEDPO SCH (08:26)
[2017-12-09] MEDS: ENOXAPARIN 30 MG/0.3 ML SQ SCH (08:27)
[2017-12-09] MEDS: FAMOTIDINE 20 MG TABLET PO SCH ×2 (08:27→21:00)
[2017-12-09] MEDS: metFORMIN 500 MG TABLET PO SCH ×2 (08:28→16:35)
[2017-12-09] MEDS: POTASSIUM CHLORIDE 10 MEQ TABLET.ER PO SCH (08:28)
[2017-12-09] MEDS: SOTALOL 120MG TABLET PO SCH ×2 (08:28→21:00)
[2017-12-09] MEDS: FUROSEMIDE 20 MG TABLET PO SCH (08:28)
[2017-12-09] MEDS: SENNA/DOCUSATE TABLET PO SCH (08:28)
[2017-12-09] MEDS: LISINOPRIL 20 MG TABLET PO SCH ×2 (08:28→21:00)
[2017-12-09 12:32] VITALS: BP 111/68
[2017-12-09] MEDS: DIPHENHYDRAMINE 25 MG CAPSULE PO PRN (19:48)
[2017-12-09 20:00] VITALS: BP 99/64
[2017-12-09] MEDS: ATORVASTATIN 40 MG TABLET PO SCH (21:00)
[2017-12-10] MEDS: DIPHENHYDRAMINE 25 MG CAPSULE PO PRN (03:23)
[2017-12-10] MEDS: OXYcodone IR 5MG TABLET PO PRN (03:23)
[2017-12-10 03:32] VITALS: BP 119/75
[2017-12-10 05:08] LABS: BASOPHILS # (AUTO) 0.02 x10^3/uL (0-0.1); BASOPHILS % (AUTO) 0 % (0-1); EOSINOPHILS # (AUTO) 0.04 x10^3/uL (0-0.4); EOSINOPHILS % (AUTO) 1 % (1-7); LYMPHOCYTES # (AUTO) 1.43 x10^3/uL (1-3.4); LYMPHOCYTES % (AUTO) 17 % (22-44); MD NO; MEAN CORPUSCULAR HEMOGLOBIN 30.3 pg (27.5-34.5); MEAN CORPUSCULAR HGB CONC 34.1 g/dL (33.2-36.2); MEAN CORPUSCULAR VOLUME 89.1 fL (81-97); MEAN PLATELET VOLUME 8.3 fL (7.4-10.4); MONOCYTES # (AUTO) 1.07 x10^3/uL (0.2-0.8); MONOCYTES % (AUTO) 12 % (2-9); NEUTROPHILS # (AUTO) 6.01 x10^3/uL (1.8-6.8); NEUTROPHILS % (AUTO) 70 % (42-75); PLATELET COUNT 231 x10^3/uL (130-400); RED BLOOD COUNT 3.55 x10^6/uL (4.38-5.82); RED CELL DISTRIBUTION WIDTH 15.9 % (9.4-14.8)
[2017-12-10 05:23] LABS: ANION GAP 5 mmol/L (5-15); CHLORIDE 102 mmol/L (98-107); CREATININE 1.06 mg/dL (0.7-1.3)
[2017-12-10 05:43] LABS: INTERNATIONAL NORMALIZED RATIO 1.02 (0.93-1.1); PROTHROMBIN TIME 10.6 Seconds (9.6-11.5)
[2017-12-10] MEDS ORDERED: BACITRACIN 50,000 UNIT ONE (06:10)
[2017-12-10] MEDS ORDERED: THROMBIN 5,000 UNIT VIAL TP ONE ×2 (06:10→11:00)
[2017-12-10] MEDS ORDERED: BUPIVACAINE/PF-EPI 0.5% 1:200K ONE (06:10)
[2017-12-10] MEDS ORDERED: BUPIVACAINE 0.25% ONE (06:10)
[2017-12-10] MEDS: INSULIN REGULAR 100 UNITS/ML, 3ML VIAL SQ-INSULIN SCH ×4 (07:00→21:00)
[2017-12-10] MEDS: metFORMIN 500 MG TABLET PO SCH ×2 (07:43→21:00)
[2017-12-10] MEDS: POTASSIUM CHLORIDE 10 MEQ TABLET.ER PO SCH (07:44)
[2017-12-10] MEDS: FUROSEMIDE 20 MG TABLET PO SCH ×2 (07:48→08:13)
[2017-12-10] MEDS ORDERED: METHOCARBAMOL 750 MG in DEXTROSE 5% 100 ML IV PRN (08:00)
[2017-12-10 08:04] VITALS: BP 161/92
[2017-12-10] MEDS: ONDANSETRON 2MG/ML, 2ML IV PRN (08:10)
[2017-12-10] MEDS: SENNA/DOCUSATE TABLET PO SCH (08:12)
[2017-12-10] MEDS: SOTALOL 120MG TABLET PO SCH ×2 (08:12→21:16)
[2017-12-10] MEDS: LISINOPRIL 20 MG TABLET PO SCH ×2 (08:12→21:17)
[2017-12-10] MEDS: FAMOTIDINE 20 MG TABLET PO SCH ×2 (08:12→21:17)
[2017-12-10] MEDS: FENOFIBRATE 160MG TAB HOMEMEDPO SCH (08:13)
[2017-12-10] MEDS: LACTATED RINGERS 1,000 ML IV SCH (08:13)
[2017-12-10] MEDS ORDERED: MIDAZOLAM 1 MG/ML, 2ML ONE (09:02)
[2017-12-10] MEDS ORDERED: FENTANYL PF 250 MCG/5ML ONE (09:02)
[2017-12-10] MEDS ORDERED: ONDANSETRON 2MG/ML, 2ML IV PRN ×2 (09:30→16:00)
[2017-12-10] MEDS ORDERED: HYDROmorphone 2 MG/ML, 1ML IV PRN (09:30)
[2017-12-10] MEDS ORDERED: FENTANYL PF 100 MCG/2ML IV PRN (09:30)
[2017-12-10] MEDS ORDERED: PROMETHAZINE 12.5 MG SUPP PR PRN (09:30)
[2017-12-10] MEDS ORDERED: MEPERIDINE/PF 25MG/0.5ML IVPush PRN (09:30)
[2017-12-10] MEDS ORDERED: ACETAMINOPHEN 325 MG TABLET PO PRN (09:30)
[2017-12-10] MEDS ORDERED: ONDANSETRON ODT 8 MG PO PRN (09:30)
[2017-12-10] MEDS ORDERED: PROMETHAZINE 25 MG SUPP PR PRN (09:30)
[2017-12-10] MEDS ORDERED: HALOPERIDOL 5 MG/ML IV PRN (09:30)
[2017-12-10] MEDS ORDERED: LABETALOL 5MG/ML, 20ML IV PRN ×2 (09:30→16:00)
[2017-12-10] MEDS ORDERED: PROMETHAZINE 25 MG/ML, 1ML IV PRN (09:30)
[2017-12-10] MEDS ORDERED: OXYcodone 5 MG/5 ML ORAL.SOL UDC PO PRN (09:30)
[2017-12-10] MEDS ORDERED: DIPHENHYDRAMINE 50 MG/ML, 1ML IVPush PRN ×2 (09:30→16:00)
[2017-12-10] MEDS ORDERED: hydrALAzine 20 MG/ML, 1ML IV PRN (09:30)
[2017-12-10] MEDS ORDERED: MORPHINE SULFATE 4 MG/ML, 1ML IVPush PRN (09:30)
[2017-12-10] MEDS ORDERED: ONDANSETRON ODT 8 MG PO ONE (10:00)
[2017-12-10] MEDS ORDERED: OXYcodone IR 5MG TABLET PO ONE (10:00)
[2017-12-10] MEDS ORDERED: GABAPENTIN 300 MG CAPSULE PO ONE (10:00)
[2017-12-10] MEDS ORDERED: ACETAMINOPHEN 500 MG TABLET PO ONE (10:00)
[2017-12-10] MEDS ORDERED: PROPOFOL 50 ML ONE ×5 (10:10→11:16)
[2017-12-10] MEDS ORDERED: PHENYLEPHRINE 10 MG/ML ONE (10:34)
[2017-12-10] MEDS ORDERED: ONDANSETRON 2MG/ML, 2ML ONE ×3 (10:41→13:11)
[2017-12-10] MEDS ORDERED: SODIUM CHLORIDE 0.9% PF 10ML ONE (10:45)
[2017-12-10] MEDS ORDERED: CEFAZOLIN 1,000 MG ONE ×2 (10:45)
[2017-12-10] MEDS ORDERED: ROCURONIUM 10MG/ML,5ML ONE (10:45)
[2017-12-10] MEDS ORDERED: PROPOFOL 10 MG/ML, 20ML ONE (10:45)
[2017-12-10] MEDS ORDERED: GLYCOPYRROLATE 0.4 MG/2 ML, 2ML ONE (10:49)
[2017-12-10] MEDS ORDERED: NEOSTIGMINE 1 MG/ML, 10ML ONE (10:49)
[2017-12-10] MEDS ORDERED: BUPIVACAINE/PF-EPI 0.5% 1:200K INFIL ONE (10:59)
[2017-12-10] MEDS ORDERED: BUPIVACAINE/PF 0.25% EPIDPUSH ONE (11:01)
[2017-12-10] MEDS ORDERED: FENTANYL PF 100 MCG/2ML EPIDPUSH ONE (11:02)
[2017-12-10] MEDS ORDERED: FENTANYL PF 100 MCG/2ML ONE (11:40)
[2017-12-10] MEDS ORDERED: BUPIVACAINE LIPOSOME/PF 20ML INFIL ONE ×2 (11:45→11:52)
[2017-12-10 15:13] VITALS: BP 103/67
[2017-12-10] MEDS ORDERED: DIPHENHYDRAMINE 50 MG/ML, 1ML IM PRN (16:00)
[2017-12-10] MEDS ORDERED: MAGNESIUM HYDROXIDE 8%, 30ML UDC PO PRN (16:00)
[2017-12-10] MEDS ORDERED: BISACODYL 10 MG SUPP PR PRN (16:00)
[2017-12-10] MEDS ORDERED: morphine SULFATE 10 MG/ML, 1ML IV PRN (16:00)
[2017-12-10] MEDS: GABAPENTIN 300 MG CAPSULE PO SCH ×2 (16:00→21:17)
[2017-12-10] MEDS ORDERED: PROMETHAZINE 25 MG/ML, 1ML IM PRN (16:00)
[2017-12-10] MEDS ORDERED: DIPHENHYDRAMINE 50 MG CAPSULE PO PRN (16:00)
[2017-12-10] MEDS: NS + 20MEQ KCL 1,000 ML IV SCH (17:11)
[2017-12-10] MEDS: CEFAZOLIN PMX 1GM/50ML 50 ML IVPB SCH (18:12)
[2017-12-10 19:18] VITALS: BP 129/74
[2017-12-10] MEDS: ATORVASTATIN 40 MG TABLET PO SCH (21:17)
[2017-12-10] MEDS: GLIPizide ER 5 MG TABLET PO SCH (21:17)
[2017-12-11 02:22] VITALS: BP 123/77
[2017-12-11] MEDS: METHOCARBAMOL 750 MG TABLET PO PRN (03:12)
[2017-12-11] MEDS: NS + 20MEQ KCL 1,000 ML IV SCH ×3 (03:12→23:38)
[2017-12-11] MEDS: CEFAZOLIN PMX 1GM/50ML 50 ML IVPB SCH (03:12)
[2017-12-11 05:38] VITALS: BP 121/70
[2017-12-11 05:39] LABS: ANION GAP 9 mmol/L (5-15); CALCIUM 7.7 mg/dL (8.5-10.1); CHLORIDE 102 mmol/L (98-107)
[2017-12-11 05:41] LABS: CREATININE 1.08 mg/dL (0.7-1.3)
[2017-12-11 06:07] LABS: BASOPHILS # (AUTO) 0.01 x10^3/uL (0-0.1); BASOPHILS % (AUTO) 0 % (0-1); EOSINOPHILS % (AUTO) 0 % (1-7); LYMPHOCYTES # (AUTO) 0.74 x10^3/uL (1-3.4); LYMPHOCYTES % (AUTO) 7 % (22-44); MD NO; MEAN CORPUSCULAR HEMOGLOBIN 30.3 pg (27.5-34.5); MEAN CORPUSCULAR HGB CONC 33.7 g/dL (33.2-36.2); MEAN CORPUSCULAR VOLUME 89.8 fL (81-97); MEAN PLATELET VOLUME 8.1 fL (7.4-10.4); MONOCYTES # (AUTO) 1.18 x10^3/uL (0.2-0.8); MONOCYTES % (AUTO) 11 % (2-9); NEUTROPHILS # (AUTO) 9.17 x10^3/uL (1.8-6.8); NEUTROPHILS % (AUTO) 83 % (42-75); PLATELET COUNT 246 x10^3/uL (130-400); RED BLOOD COUNT 3.46 x10^6/uL (4.38-5.82); RED CELL DISTRIBUTION WIDTH 15.6 % (9.4-14.8)
[2017-12-11] MEDS: ENOXAPARIN 40 MG/0.4 ML SQ SCH (06:36)
[2017-12-11 08:27] VITALS: BP 130/76
[2017-12-11] MEDS: SCOPOLAMINE PATCH, 1.5MG PATCH.TD72 TD SCH (09:00)
[2017-12-11] MEDS: metFORMIN 500 MG TABLET PO SCH ×2 (09:20→21:17)
[2017-12-11] MEDS: INSULIN REGULAR 100 UNITS/ML, 3ML VIAL SQ-INSULIN SCH ×4 (09:20→21:00)
[2017-12-11] MEDS: SENNA/DOCUSATE TABLET PO SCH (09:20)
[2017-12-11] MEDS: GLIPizide ER 5 MG TABLET PO SCH ×2 (09:21→21:17)
[2017-12-11] MEDS: FENOFIBRATE 145 MG TABLET PO SCH (09:21)
[2017-12-11] MEDS: GABAPENTIN 300 MG CAPSULE PO SCH ×3 (09:21→21:16)
[2017-12-11] MEDS: POTASSIUM CHLORIDE 10 MEQ TABLET.ER PO SCH (09:21)
[2017-12-11] MEDS: LISINOPRIL 20 MG TABLET PO SCH ×2 (09:22→21:17)
[2017-12-11] MEDS: FAMOTIDINE 20 MG TABLET PO SCH ×2 (09:22→21:17)
[2017-12-11] MEDS: SOTALOL 120MG TABLET PO SCH ×2 (09:22→21:00)
[2017-12-11] MEDS: FUROSEMIDE 20 MG TABLET PO SCH (09:23)
[2017-12-11] MEDS: OXYcodone IR 5MG TABLET PO PRN (11:27)
[2017-12-11 13:18] VITALS: BP 100/67
[2017-12-11 21:10] VITALS: BP 104/67
[2017-12-11] MEDS: CEPHALEXIN 500 MG CAPSULE PO SCH (21:16)
[2017-12-11] MEDS: ATORVASTATIN 40 MG TABLET PO SCH (21:17)
[2017-12-12 03:46] VITALS: BP 117/69
[2017-12-12 05:19] LABS: BASOPHILS # (AUTO) 0.02 x10^3/uL (0-0.1); BASOPHILS % (AUTO) 0 % (0-1); EOSINOPHILS # (AUTO) 0.08 x10^3/uL (0-0.4); EOSINOPHILS % (AUTO) 1 % (1-7); LYMPHOCYTES # (AUTO) 1.32 x10^3/uL (1-3.4); LYMPHOCYTES % (AUTO) 14 % (22-44); MD NO; MEAN CORPUSCULAR HGB CONC 33.6 g/dL (33.2-36.2); MEAN CORPUSCULAR VOLUME 89.4 fL (81-97); MEAN PLATELET VOLUME 7.9 fL (7.4-10.4); MONOCYTES # (AUTO) 1.21 x10^3/uL (0.2-0.8); MONOCYTES % (AUTO) 13 % (2-9); NEUTROPHILS # (AUTO) 6.71 x10^3/uL (1.8-6.8); NEUTROPHILS % (AUTO) 72 % (42-75); PLATELET COUNT 211 x10^3/uL (130-400); RED CELL DISTRIBUTION WIDTH 15.7 % (9.4-14.8)
[2017-12-12 05:27] LABS: ANION GAP 7 mmol/L (5-15); CALCIUM 7.7 mg/dL (8.5-10.1); CHLORIDE 105 mmol/L (98-107)
[2017-12-12 05:29] LABS: CREATININE 1.01 mg/dL (0.7-1.3)
[2017-12-12] MEDS: METHOCARBAMOL 750 MG TABLET PO PRN ×2 (06:44→16:28)
[2017-12-12] MEDS: CEPHALEXIN 500 MG CAPSULE PO SCH ×4 (06:44→22:46)
[2017-12-12] MEDS: ENOXAPARIN 40 MG/0.4 ML SQ SCH (06:45)
[2017-12-12 07:29] VITALS: BP 139/76
[2017-12-12] MEDS: INSULIN REGULAR 100 UNITS/ML, 3ML VIAL SQ-INSULIN SCH ×4 (07:31→22:46)
[2017-12-12] MEDS: OXYcodone IR 5MG TABLET PO PRN ×3 (08:24→16:28)
[2017-12-12] MEDS: GABAPENTIN 300 MG CAPSULE PO SCH ×3 (08:24→22:46)
[2017-12-12] MEDS: SENNA/DOCUSATE TABLET PO SCH (08:25)
[2017-12-12] MEDS: FENOFIBRATE 145 MG TABLET PO SCH (08:25)
[2017-12-12] MEDS: metFORMIN 500 MG TABLET PO SCH ×2 (08:25→22:46)
[2017-12-12] MEDS: LISINOPRIL 20 MG TABLET PO SCH ×2 (08:25→22:47)
[2017-12-12] MEDS: NS + 20MEQ KCL 1,000 ML IV SCH ×2 (08:25→16:28)
[2017-12-12] MEDS: GLIPizide ER 5 MG TABLET PO SCH ×2 (08:25→22:47)
[2017-12-12] MEDS: SOTALOL 120MG TABLET PO SCH ×2 (08:25→22:47)
[2017-12-12] MEDS: FUROSEMIDE 20 MG TABLET PO SCH (08:25)
[2017-12-12] MEDS: POTASSIUM CHLORIDE 10 MEQ TABLET.ER PO SCH (08:25)
[2017-12-12] MEDS: FAMOTIDINE 20 MG TABLET PO SCH ×2 (08:25→22:47)
[2017-12-12 14:30] VITALS: BP 101/65
[2017-12-12 20:11] VITALS: BP 110/68
[2017-12-12] MEDS: ATORVASTATIN 40 MG TABLET PO SCH (22:47)
[2017-12-13 02:00] VITALS: BP 105/61
[2017-12-13] MEDS: NS + 20MEQ KCL 1,000 ML IV SCH ×2 (05:00→11:55)
[2017-12-13] MEDS: ENOXAPARIN 40 MG/0.4 ML SQ SCH (06:34)
[2017-12-13] MEDS: CEPHALEXIN 500 MG CAPSULE PO SCH ×2 (06:34→11:52)
[2017-12-13] MEDS: INSULIN REGULAR 100 UNITS/ML, 3ML VIAL SQ-INSULIN SCH ×2 (07:41→11:55)
[2017-12-13 08:05] VITALS: BP 132/85
[2017-12-13] MEDS: SENNA/DOCUSATE TABLET PO SCH (09:00)
[2017-12-13] MEDS: SOTALOL 120MG TABLET PO SCH (09:01)
[2017-12-13] MEDS: LISINOPRIL 20 MG TABLET PO SCH (09:01)
[2017-12-13] MEDS: FUROSEMIDE 20 MG TABLET PO SCH (09:01)
[2017-12-13] MEDS: metFORMIN 500 MG TABLET PO SCH (09:01)
[2017-12-13] MEDS: POTASSIUM CHLORIDE 10 MEQ TABLET.ER PO SCH (09:01)
[2017-12-13] MEDS: GABAPENTIN 300 MG CAPSULE PO SCH (09:01)
[2017-12-13] MEDS: OXYcodone IR 5MG TABLET PO PRN ×2 (09:01→12:35)
[2017-12-13] MEDS: FENOFIBRATE 145 MG TABLET PO SCH (09:01)
[2017-12-13] MEDS: FAMOTIDINE 20 MG TABLET PO SCH (09:01)
[2017-12-13] MEDS: GLIPizide ER 5 MG TABLET PO SCH (09:02)
[2017-12-13] MEDS ORDERED: OXYC-432 PO (10:21)
[2017-12-13] MEDS ORDERED: METH750T87 PO (10:22)
[2017-12-13 12:41] VITALS: BP 120/74
== END 2017-12-13 14:30 | disposition home or self-care (01) | DRG 454 ==
LOC: ORIP 08:31 → 4NOR 14:08
PROVIDERS: ADMIT Neurological Surgery; ATTEND Neurological Surgery
PROC: 4A11X4G Monitoring of Peripheral Nervous Electrical Activity, Intraoperative, External Approach (ICD-10-PCS; 2017-12-07)
PROC: 0SB20ZZ Excision of Lumbar Vertebral Disc, Open Approach (ICD-10-PCS; 2017-12-07)
PROC: 0SG10A0 Fusion of 2 or more Lumbar Vertebral Joints with Interbody Fusion Device, Anterior Approach, Anterior Column, Open Approach (ICD-10-PCS; principal; 2017-12-07 10:30)
PROC: 0SG1071 Fusion of 2 or more Lumbar Vertebral Joints with Autologous Tissue Substitute, Posterior Approach, Posterior Column, Open Approach (ICD-10-PCS; 2017-12-10)
PROC: 4A11X4G Monitoring of Peripheral Nervous Electrical Activity, Intraoperative, External Approach (ICD-10-PCS; 2017-12-10)
DX: M48.062 Spinal stenosis, lumbar region with neurogenic claudication (principal); R71.0 Precipitous drop in hematocrit; D68.59 Other primary thrombophilia; M51.16 Intervertebral disc disorders with radiculopathy, lumbar region; M41.86 Other forms of scoliosis, lumbar region; M43.16 Spondylolisthesis, lumbar region; I10 Essential (primary) hypertension; Z98.61 Coronary angioplasty status; I34.0 Nonrheumatic mitral (valve) insufficiency; I48.91 Unspecified atrial fibrillation; E78.5 Hyperlipidemia, unspecified; E11.9 Type 2 diabetes mellitus without complications
CPT/HCPCS: 36415; 72100; 72131; 80048; 82962; 85025; 85610; 85730; 86850; 86900; C1713; C9290; J0690; J1650; J1815; J2250; J2405; J2704; J2710; J3010; J3480; J3490; Q0162; C1751; C1760; C1762; J2370; J2765; J7120; Q0163

== ENCOUNTER 2017-12-14 19:35 | Emergency (ER) | payer MEDICARE ==
[~2017-12-14] VITALS: Ht 177.8 cm; Wt 95.0 kg
[~2017-12-14 19:35] MED LIST changes: +METH750T87 PO; +OXYC-432 PO
[2017-12-14 20:58] LABS: MICROSCOPIC NOT IND
[2017-12-14 21:04] LABS: CULTURE INDICATED? NO
[2017-12-14 21:44] VITALS: BP 142/87
== END 2017-12-14 22:54 | disposition home or self-care (01) ==
LOC: ED 22:45
DX: R33.0 Drug induced retention of urine (principal); T40.605A Adverse effect of unspecified narcotics, initial encounter; E78.5 Hyperlipidemia, unspecified; E11.9 Type 2 diabetes mellitus without complications; I25.10 Atherosclerotic heart disease of native coronary artery without angina pectoris; I11.9 Hypertensive heart disease without heart failure; M54.9 Dorsalgia, unspecified; Y92.89 Other specified places as the place of occurrence of the external cause
CPT/HCPCS: 51702; 81003; 99284